=== PATIENT | female | born 1955 | race African-American/Black ===

== ENCOUNTER 2022-11-18 23:03 | Emergency (ER) | payer MEDICARE ==
--- OUTSIDE RECORDS SUMMARY | 2022-11-18 23:07 | XMS REPORT | Continuity of Care Document ---
:[address] [facility] t Address [address] [place] [address] [address] [place] [address] Care Team Providers Name Role Phone UNKNOWN, REFFERING Primary Care Physician Unavailable Uche Zuniga Attending Clinician Unavailable CHRISTINE GARY Attending Clinician Unavailable CHRISTINE GARY Attending Clinician Unavailable Marcela Marcus APRN Attending Clinician BEN EMMANUEL Attending Clinician Unavailable VAZQUEZ FERREIRA M.D., Sandi SHUKLA. Attending Clinician UnavailVAZQUEZ Lockwood M.D., Sandi SHUKLA. Admitting Clinician Geneva joseph Payers Payer Name Policy Type Policy Number Effective Date Expiration Date S ource [employer] MEDICARE [id number] 2020 ADVANTAGE HMO 00:00:00 [facility] [id number] (MEDICARE 00:00:00 REPLACEMENT HMO) [facility] [id number] 2018 00:00:00 [employer] MEDICARE [id number] 2020 00:00:00 Problems Condition Condition Condition Status Onset Resolution Last Treating Co mments Source Name Details Category Date Date Treatment Clinician Date Trigger Trigger Disease Active [facility] ring ring 05-21 Health finger of finger of 00:00: right hand right hand 00 Bilateral Bilateral Disease Active [facility] hand pain hand pain 05-21 Heal th 00:00: 00 Allergies, Adverse Reactions, Alerts Allergy Allergy Status Severity Reaction(s) Onset Inactive Treating Comm ents Source Name Type Date Date Clinician NO KNOWN Drug Active Leena Denny ity of [facility] Social History Social Habit Start Date Stop Date Quantity Comments Source Exposure to Not sure [facility] SARS-CoV-2 (event) Tobacco use and 2021-05-21 2021-05-21 Smokeless tobacco [facility] exposure 00:00:00 00:00:00 non-user Alcohol intake 2021-05-21 2021-05-21 Lifetime [facility] 00:00:00 00:00:00 non-drinker (finding) Sex Ass[birth year] At [birth year] [facility] 00:00:00 00:00:00 Smoking Status Start Date Stop Date Source Never smoked tobacco [facility] Medications Ordered Filled Start Stop Current Ordering Indication Dosage Frequency Signature Comments Components Source Medication Medication Date Date Medication? Clinician (SIG) Name Name ondansetron 2020- No [id number] 8mg Take 1 [facility] ODT (Zofran - 10- tablet (8 He alth ODT) 8 MG 00:00: 04:59 mg total) disintegrat 00 :00 by mouth ing tablet every 8 (eight) hours if needed for nausea or vomiting for up to 4 days. docusate 2020- No [id number] 100mg Q.[id number] Take 1 [facility] sodium -17 07- [id number] capsule Hea [facility]th (Colace) 00:00: 04:59 3D (100 mg 100 MG 00 :00 total) by capsule mouth 3 (three) times a day for 4 days. ondansetron 2020- No [id number] 8mg Take 1 [facility] ODT (Zofran 06-17 10- tablet (8 He alth ODT) 8 MG 00:00: 04:59 mg total) disintegrat 00 :00 by mouth ing tablet every 8 (eight) hours if needed for nausea or vomiting for up to 4 days. docusate 2020- No [id number] 100mg Q.[id number] Take 1 [facility] sodium 9- 10- [id number] capsule Hea lth (Colace) 00:00: 04:59 3D (100 mg 100 MG 00 :00 total) by capsule mouth 3 (three) times a day for 4 days. ondansetron 2020- No [id number] 8mg Take 1 [facility] ODT (Zofran - 10-02 tablet (8 He alth ODT) 8 MG 00:00: 04:59 mg total) disintegrat 00 :00 by mouth ing tablet every 8 (eight) hours if needed for nausea or vomiting for up to 4 days. docusate 2020- No [id number] 100mg Q.[id number] Take 1 [facility] sodium -17 07- [id number] capsule Hea lth (Colace) 00:00: 04:59 3D (100 mg 100 MG 00 :00 total) by capsule mouth 3 (three) times a day for 4 days. ondansetron 2020- No [id number] 8mg Take 1 [facility] ODT (Zofran 06-17 10- tablet (8 He alth ODT) 8 MG 00:00: 04:59 mg total) disintegrat 00 :00 by mouth ing tablet every 8 (eight) hours if needed for nausea or vomiting for up to 4 days. docusate 2020- No [id number] 100mg Q.[id number] Take 1 UT sodium 06-17- [id number] capsule Hea lth (Colace) 00:00: 04:59 3D (100 mg 100 MG 00 :00 total) by capsule mouth 3 (three) times a day for 4 days. traMADol 2020- No [id number] 50mg Q6H Take 1 U T (Ultram) 50 06-17 10- tablet (50 H ealth MG tablet 00:00: 04:59 mg total) 00 :00 by mouth every 6 (six) hours if needed for severe pain for up to 3 days. traMADol 2020- No [id number] 50mg Q6H Take 1 U T (Ultram) 50 06-17 10-01 tablet (50 H ealth MG tablet 00:00: 04:59 mg total) 00 :00 by mouth every 6 (six) hours if needed for severe pain for up to 3 days. traMADol 2020- No [id number] 50mg Q6H Take 1 U T (Ultram) 50 06-17 10-01 tablet (50 H ealth MG tablet 00:00: 04:59 mg total) 00 :00 by mouth every 6 (six) hours if needed for severe pain for up to 3 days. traMADol 0 2020- No [id number] 50mg Q6H Take 1 U T (Ultram) 50 06-17 10- tablet (50 H ealth MG tablet 00:00: 04:59 mg total) 00 :00 by mouth every 6 (six) hours if needed for severe pain for up to 3 days. amoxicillin 2020-0 Yes UT (Amoxil) 8-30 Health 500 MG 00:00: capsule 00 pantoprazol 2020-0 Yes UT e 8-30 Health (ProtoNix) 00:00: 40 MG EC 00 tablet clarithromy 2020-0 Yes UT adam 8-30 Health (Biaxin) 00:00: 500 MG 00 tablet amoxicillin 2020-0 Yes UT (Amoxil) 8-30 Health 500 MG 00:00: capsule 00 pantoprazol 2020-0 Yes UT e 8-30 Health (ProtoNix) 00:00: 40 MG EC 00 tablet clarithromy 1-0 Yes UT adam 8-30 Health (Biaxin) 00:00: 500 MG 00 tablet amoxicillin 2020-0 Yes UT (Amoxil) 8-30 Health 500 MG 00:00: capsule 00 pantoprazol 2020-0 Yes UT e 8-30 Health (ProtoNix) 00:00: 40 MG EC 00 tablet clarithromy 1-0 Yes UT adam 8-30 Health (Biaxin) 00:00: 500 MG 00 tablet amoxicillin 2020-0 Yes UT (Amoxil) 8-30 Health 500 MG 00:00: capsule 00 pantoprazol 1-0 Yes UT e 8-30 Health (ProtoNix) 00:00: 40 MG EC 00 tablet clarithromy 1-0 Yes UT adam 8-30 Health (Biaxin) 00:00: 500 MG 00 tablet amoxicillin 2020-0 Yes UT (Amoxil) 8-30 Health 500 MG 00:00: capsule 00 pantoprazol 1-0 Yes UT e 8-30 Health (ProtoNix) 00:00: 40 MG EC 00 tablet clarithromy 1-0 Yes UT adam 8-30 Health (Biaxin) 00:00: 500 MG 00 tablet amoxicillin 2020-0 Yes UT (Amoxil) 8-30 Health 500 MG 00:00: capsule 00 pantoprazol 2020-0 Yes UT e 8-30 Health (ProtoNix) 00:00: 40 MG EC 00 tablet clarithromy 1-0 Yes UT adam 8-30 Health (Biaxin) 00:00: 500 MG 00 tablet amoxicillin 2020-0 Yes UT (Amoxil) 8-30 Health 500 MG 00:00: capsule 00 pantoprazol 2020-0 Yes UT e 8-30 Health (ProtoNix) 00:00: 40 MG EC 00 tablet clarithromy 2020-0 Yes UT adam 8-30 Health (Biaxin) 00:00: 500 MG 00 tablet alendronate 2020-0 Yes UT (Fosamax) 7-26 Health 70 MG 00:00: tablet 00 alendronate 2020-0 Yes UT (Fosamax) 7-26 Health 70 MG 00:00: tablet 00 alendronate 2020-0 Yes UT (Fosamax) 7-26 Health 70 MG 00:00: tablet 00 alendronate 2020-0 Yes UT (Fosamax) 7-26 Health 70 MG 00:00: tablet 00 alendronate 2020-0 Yes UT (Fosamax) 7-26 Health 70 MG 00:00: tablet 00 alendronate 2020-0 Yes UT (Fosamax) 7-26 Health 70 MG 00:00: tablet 00 alendronate 2020-0 Yes UT (Fosamax) 7-26 Health 70 MG 00:00: tablet 00 Suprep 2020-0 Yes TAKE 1 UT Bowel Prep 6-14 BOTTLE BY [facility] th Kit 00:00: MOUTH 17.5-3.13-1 00 EVERY DAY .6 GM/177ML solution Suprep 2020-0 Yes TAKE 1 [facility] Bowel Prep 6-14 BOTTLE BY [facility] th Kit 00:00: MOUTH 17.5-3.13-1 00 EVERY DAY .6 GM/177ML solution Suprep 1-0 Yes TAKE 1 UT Bowel Prep 6-14 BOTTLE BY [facility] Kit 00:00: MOUTH 17.5-3.13-1 00 EVERY DAY .6 GM/177ML solution Suprep 1-0 Yes TAKE 1 UT Bowel Prep 6-14 BOTTLE BY Heal th Kit 00:00: MOUTH 17.5-3.13-1 00 EVERY DAY .6 GM/177ML solution Suprep 2020-0 Yes TAKE 1 UT Bowel Prep 6-14 BOTTLE BY [facility] Kit 00:00: MOUTH 17.5-3.13-1 00 EVERY DAY .6 GM/177ML solution Suprep 2020-0 Yes TAKE 1 UT Bowel Prep 6-14 BOTTLE BY [facility] Kit 00:00: MOUTH 17.5-3.13-1 00 EVERY DAY .6 GM/177ML solution Suprep 2020-0 Yes TAKE 1 UT Bowel Prep 6-14 BOTTLE BY [facility] Kit 00:00: MOUTH 17.5-3.13-1 00 EVERY DAY .6 GM/177ML solution Vital Signs Vital Name Observation Time Observation Value Comments Source Body height 2021-05-21 14:53:00 142.2 cm [facility] weight 2021-05-21 14:53:00 60.328 kg [facility] h BMI 2021-05-21 14:53:00 29.82 kg/m2 [facility] Procedures This patient has no known procedures. Encounters Start End Encounter Admission Attending Care Care Encounter Source Date/Time Date/Time Type Type Clinicians Facility Department ID 2022-10-20 Outpatient Zuniga, STLMLC STLC [id number] Common 16:58:00 [facility] [id number] [facility] 2022-10-01 Outpatient Zuniga, STLMLC STLC [id number] Common 07:32:00 [facility] [address] [facility] 2022-08-22 Outpatient Zuniga, STLMLC STLMLC [id number] Common 11:13:00 Uche [facility] 2022-02-24 Outpatient Zuniga, STLMLC STLMLC [id number] Common 08:20:01 Uche [facility] 2021-11-19 Outpatient Zuniga, STLMLC STLMLC [id number] Common 15:52:00 Uche [facility] 2021-10-16 Outpatient Zuniga, STLMLC STLMLC [id number] Common 12:39:36 Uche [id number] [facility] 2021-10-16 Outpatient Zuniga, STLMLC STLMLC [id number] Common 12:39:10 Uche [id number] [facility] 2021-10-16 Outpatient Zuniga, STLMLC STLMLC Common 12:38:06 Uche [id number] [facility] 2021-10-16 Outpatient Zuniga, STLMLC STLMLC Common 12:29:47 Uche [id number] [facility] 2021-10-16 Outpatient STLMLC STLMLC Common 12:20:01 [id number] [facility] 2021-10-16 Outpatient STLMLC STLC Common 12:14:53 [id number] [facility] 2021-09-17 Outpatient TATE [facility] [id number] [place] 01:03:39 [facility] 2021-06-17 Outpatient TATE PEGGY [facility] [id number] H 11:02:18 [facility] 2021-05-15 Outpatient [facility] [id number] UT 14:04:01 [facility] 2021-05-15 Outpatient [facility] [id number] UT 14:02:20 [facility] 2021-04-16 Outpatient TATE [facility] [id number] UT 13:47:03 [facility] 2022-04-04 2022-04-04 Outpatient DMG MELINDA [id number] [facility] 03:15:00 03:15:00 [facility] 2021-07-22 2021-07-22 Outpatient DMJimbo LAWRENCE [id number] [facility] 08:00:00 08:00:00 [facility]01 [facility] 2021-07-01 2021-07-01 Office LUCY Gary [facility] [id number] [place] 09:12:42 15:00:36 Visit [facility] [id number] H [facility] [id number] [address] [id number] 2021-06-18 2021-06-18 Outpatient TANO GARY [facility] [id number] [facility] 11:07:00 14:03:00 [place] 2021-06-17 2021-06-17 Orders LUCY Marcus 6400 [id number] [place] 00:00:00 00:00:[address] [id number] Health [id number] 2021-06-17 2021-06-17 Orders LUCY Marcus 6400 [id number] [place] 00:00:00 00:00:[address] [id number] Health [id number] 2021-05-21 2021-05-21 Office LUCY Gary [facility] [id number] [place] 09:47:52 15:55:44 Visit Christine LUCIO [id number] H [facility] [id number] PLA[address] 2 [id number] 2020-12-20 2020-12-20 Outpatient Sarahy EMMANUEL [facility] [id number] [facility] 13:50:00 13:50:00 BEN [facility] 2020-11-29 2020-11-29 Outpatient [facility] [id number] [facility] 10:50:00 10:50:00 [facility] 2017-08-12 2017-08-12 Outpatient VAZQUEZ JIMENEZ [facility] [id number] 14:06:00 14:06:00 , Leann [facility] Results This patient has no known results.
--- NOTE | 2022-11-18 23:51 | EDPHYS ---
Physician Documentation [facility] Name: Mya Novak Age: 67 yrs Sex: Female : 1955 Arrival Date: 11/18/2022 Time: 23:09 Bed Waiting Private MD: ED Physician Shahid Rowland HPI: 11/18 23:51 This 67 yrs old Black Female presents to ER via Ambulatory with complaints of Drainage rt From Ear. 23:51 Patient presents to the ED with bleeding from left external auditory canal. Patient rt states that she had she had a mole removed from the left ear at about noon, states that she woke up and noticed bleeding from the ear. Reports that she feels that her ear is stopped up. She denies trauma, other acute complaints. Symptoms are mild in severity, no other aggravating or alleviating factors. Historical: - Allergies: 23:45 No Known Allergies; kd3 - Home Meds: 23:45 None [Active]; kd3 - Immunization history:: Adult Immunizations up to date. - Social history:: Smoking status: Patient denies any tobacco usage or history of. - Family history:: not pertinent. ROS: 23:51 Constitutional: Negative for fever, chills, and weight loss, Cardiovascular: Negative rt for chest pain, palpitations, and edema, Respiratory: Negative for shortness of breath, cough, wheezing, and pleuritic chest pain, Abdomen/GI: Negative for abdominal pain, nausea, vomiting, diarrhea, and constipation. 23:51 ENT: Positive for Drainage from ear, feeling of fullness. Exam: 23:51 Constitutional: This is a well developed, well nourished patient who is awake, alert, rt and in no acute distress. Neck: Trachea midline, no thyromegaly or masses palpated, and no cervical lymphadenopathy. Supple, full range of motion without nuchal rigidity, or vertebral point tenderness. No Meningismus. Chest/axilla: Normal chest wall appearance and motion. Nontender with no deformity. No lesions are appreciated. Cardiovascular: Regular rate and rhythm with a normal S1 and S2. No gallops, murmurs, or rubs. Normal PMI, no JVD. No pulse deficits. Respiratory: Lungs have equal breath sounds bilaterally, clear to auscultation and percussion. No rales, rhonchi or wheezes noted. No increased work of breathing, no retractions or nasal flaring. Abdomen/GI: Soft, non-tender, with normal bowel sounds. No distension or tympany. No guarding or rebound. No evidence of tenderness throughout. 23:51 ENT: Very minimal bleeding in left external auditory canal, no active bleeding, mild TM effusion, no exudates, no hemotympanum, TM is intact. Vital Signs: 23:45 Weight 60.33 kg; kd3 23:50 BP 122 / 94; Pulse 81; Resp 19; Temp 98.2; Pulse Ox 99% on R/A; kd3 MDM: 23:51 Patient medically screened. rt 23:51 Differential diagnosis: otitis media, otitis externa, ruptured TM, foreign body. Data rt reviewed: vital signs, nurses notes. Counseling: I had a detailed discussion with the patient and/or guardian regarding: the historical points, exam findings, and any diagnostic results supporting the discharge/admit diagnosis, the need for outpatient follow up. Administered Medications: No medications were administered Disposition Summary: 11/18/22 23:51 Discharge Ordered Location: Home rt Problem: new rt Symptoms: are unchanged rt Condition: Stable rt Diagnosis - Bleeding from left external auditory canal rt Followup: rt - With: Private Physician - When: 1 - 2 days - Reason: Discharge Instructions: - Discharge Summary Sheet rt - Ear Drainage rt Forms: - Medication Reconciliation Form rt - Thank You Letter rt - Antibiotic Education rt - Prescription Opioid Use rt Signatures: Jolynn Bey RN RN kd3 Shahid Rowland MD MD rt Corrections: (The following items were deleted from the chart) 23:49 23:45 Allergies: Ibuprofen; kd3 kd3
--- NOTE | 2022-11-18 23:51 | ER ---
Nurse's Notes [facility] Name: Mya Novak Age: 67 yrs Sex: Female : 1955 Arrival Date: 11/18/2022 Time: 23:09 Bed Waiting Private MD: Diagnosis: Bleeding from left external auditory canal Presentation: 11/18 23:43 Chief complaint: Patient states: I had a mole removed out of my ear in [place] kd3 today. My left ear is feeling a little clogged and it was bleeding earlier. Ebola Screen: No symptoms or risks identified at this time. Initial Sepsis Screen: Does the patient meet any 2 criteria? No. Patient's initial sepsis screen is negative. Does the patient have a suspected source of infection? No. Patient's initial sepsis screen is negative. Risk Assessment: Do you want to hurt yourself or someone else? Patient reports no desire to harm self or others. Onset of symptoms was November 18, 2022. 23:43 Method Of Arrival: Ambulatory kd3 23:43 Acuity: ANNA 4 kd3 23:45 Coronavirus screen: Vaccine status: Patient reports receiving the 2nd dose of the covid kd3 vaccine. Triage Assessment: 23:45 General: Appears in no apparent distress. Behavior is calm, cooperative. Pain: Denies kd3 pain. Historical: - Allergies: 23:45 No Known Allergies; kd3 - Home Meds: 23:45 None [Active]; kd3 - Immunization history:: Adult Immunizations up to date. - Social history:: Smoking status: Patient denies any tobacco usage or history of. - Family history:: not pertinent. Screenin:54 [facility] ED Fall Risk Assessment (Adult) History of falling in the last 3 months, kd3 including since admission No falls in past 3 months (0 pts) Confusion or Disorientation No (0 pts) Intoxicated or Sedated No (0 pts) Impaired Gait No (0 pts) Mobility Assist Device Used No (0 pt) Altered Elimination No (0 pt) Score/Fall Risk Level 0 - 2 = Low Risk Maintained a safe environment. Abuse screen: Denies threats or abuse. Denies injuries from another. Nutritional screening: No deficits noted. Tuberculosis screening: No symptoms or risk factors identified. Assessment: 23:53 General: Appears in no apparent distress. Behavior is calm, cooperative. Neuro: Level kd3 of Consciousness is awake, alert, obeys commands, Oriented to person, place, time, situation. Respiratory: Airway is patent Trachea midline Respiratory effort is even, unlabored, Respiratory pattern is regular, symmetrical. Vital Signs: 23:45 Weight 60.33 kg; kd3 23:50 BP 122 / 94; Pulse 81; Resp 19; Temp 98.2; Pulse Ox 99% on R/A; kd3 ED Course: 23:09 Patient arrived in ED. ag3 23:10 Shahid Rowland MD is Attending Physician. rt 23:45 Triage completed. kd3 23:45 Arm band placed on right wrist. kd3 23:54 Patient has correct armband on for positive identification. kd3 23:54 No provider procedures requiring assistance completed. Patient did not have IV access kd3 during this emergency room visit. 23:55 Jolynn Bey, RN is Primary Nurse. kd3 Administered Medications: No medications were administered Medication: 23:54 VIS not applicable for this client. kd3 Outcome: 23:51 Discharge ordered by MD. rt 23:54 Discharged to home ambulatory. kd3 23:54 Condition: stable 23:54 Discharge instructions given to patient, Instructed on discharge instructions, follow up and referral plans. Demonstrated understanding of instructions, follow-up care. 23:55 Patient left the ED. kd3 Signatures: Tracy Drummond Kyli, DINO RN kd3 Shahid Rowland MD MD rt Corrections: (The following items were deleted from the chart) 23:49 23:45 Allergies: Ibuprofen; kd3 kd3
[2022-11-19 00:51] VITALS: BP 122/94; TEMP 98.2; O2SAT 99
== END 2022-11-18 23:55 | disposition home or self-care (01) ==
LOC: ER 23:03
DX: H92.22 Otorrhagia, left ear (principal)